=== PATIENT | male | born 1985 | race Caucasian/White ===

== ENCOUNTER 2017-11-20 09:14 | Inpatient (IN) | payer MEDICAID ==
[2017-11-20] MEDS ORDERED: OLANZapine DISINTEGR 5 MG TAB PO ONE (09:32)
--- NOTE | 2017-11-20 09:35 | EDPHY ---
H & P Stated Complaint: Paranoia, anxiety, nausea - Personal History Current Tetanus/Diphtheria Vaccine: No Current Tetanus Diphtheria and Acellular Pertussis (TDAP): No - Medical/Surgical History Hx Asthma: No Hx Chronic Respiratory Disease: No Hx Diabetes: No Hx Cardiac Disease: No Hx Renal Disease: No Hx Cirrhosis: No Hx Alcoholism: No Hx HIV/AIDS: No Hx Splenectomy or Spleen Trauma: No Other PMH: Bipolar, anxiety - Social History Smoking Status: Never smoked Time Seen by Provider: 11/20/17 09:20 HPI/ROS: CHIEF COMPLAINT: Increasing paranoia and anxiety HISTORY OF PRESENT ILLNESS: 32-year-old male history of bipolar disorder in the ER voluntarily via private vehicle with parents complaining of progressively increasing paranoia, anxiety, auditory and visual hallucinations over the past several days. He has been general compliant with his lithium although notes that he may have missed some doses. Denies acute alcohol or drug use. Prior history of methamphetamine abuse has been sober for quite some time now. His sleep habits have been disrupted. He denies suicidal or homicidal ideation. Denies complaints of physical pain. Denies abdominal pain. Denies self-injurious behavior. REVIEW OF SYSTEMS: A ten point review of systems was performed and is negative with the exception of the items mentioned in the HPI PAST MEDICAL & SURGICAL HISTORY: Bipolar disorder SOCIAL HISTORY:Denies acute alcohol or drug use. PHYSICAL EXAM (Prior to examination, patient consented to physical exam, hands were washed and my usual and customary physical exam procedures followed) 1) GENERAL: Well-developed, well-nourished, alert and oriented. Rapid speech, flight of ideas. 2) HEAD: Normocephalic, atraumatic 3) HEENT: Pupils equal, round, reactive to light bilaterally. Sclera anicteric. 4) NECK: Full range of motion, no meningeal signs. 5) LUNGS: Clear auscultation bilaterally, no wheezes, no rhonchi, no retractions. 6) HEART: Regular rate and rhythm, no murmur, no heave, no gallop. 7) ABDOMEN: No guarding, no rebound, no focal tenderness, negative McBurney's, negative Winston's, negative Rovsing's, negative peritoneal sign, 8) MUSCULOSKELETAL: Moving all extremities, no focal areas of tenderness, no obvious trauma. No peripheral edema or discoloration. 9) BACK: No CVA tenderness, no midline vertebral tenderness, no fluctuance, no step-off, no obvious trauma, no visual or palpable abnormality. 10) SKIN: No rash, no petechiae. 11) Psychiatric: Patient is oriented X 3, there is no agitation. The able answer questions appropriately although he is noted to have rapid speech and flight of ideas. DIFFERENTIAL DIAGNOSIS: In no particular include but limited to mei, psychosis, depression (Susan Stauffer Edwige) Constitutional: Initial Vital Signs Temperature (C) 37 C 11/20/17 09:16 Respiratory Rate 18 11/20/17 09:16 Blood Pressure 122/82 H 11/20/17 09:16 O2 Sat (%) 96 11/20/17 09:16 O2 Delivery Mode Room Air Allergies/Adverse Reactions: No Known Allergies Allergy (Unverified 11/20/17 09:15) Home Medications: Medication Instructions Recorded [place] Aspartate 11/20/17 Saphris 11/20/17 VYVANSE 11/20/17 Medical Decision Making ED Course/Re-evaluation: 9:32 a.m.: This patient does not meet criteria for an M1 hold at this time. He is in the ER voluntarily. He is concerned he will become progressively more manic and psychotic. He denies suicidal or homicidal ideation. In the ER with his parents. Will obtain laboratory studies including lithium level and consult with mental health horologist. 11:23 a.m.: patient's amphetamine screen is positive. On re-evaluation he states that he has recently used methamphetamine. Mental health horologist has recommended that he be placed on M1 hold for being gravely disabled and be re- evaluated in 12 hr. He is placed on M1. 5:00 p.m.: Care turned over to Dr. Memo Madden. Patient will be evaluated by mental health horologist at 11:30 p.m.. He remains calm cooperative in the ER. ( Susan Stauffer Edwige) 1243: Patient has been seen evaluated by mental health. They plan for ATU placement. 0700AM: No acute events overnight patient has been sleeping. Patient signed over to Dr. Soto at 7am. 11/21/17 (Nathan Swift) 1500: The patient is signed out to me at change of shift by Dr. Soto. 15 15: Patient became more agitated. Because of this he was given Ativan 1 mg IV. Patient received placement at [facility] psychiatric unit. EMTALA completed. (Promise Valdez) Other Provider: I assumed care of patient at 0700 AM. Patient was re-evaluated by [facility]. He continues to be decline for ATU placement. They will attempt possible placement on the inpatient unit. The patient will be turned over to Dr. Valdez at shift change pending psychiatric evaluation and disposition. (Brandon Soto) - Data Points Laboratory Results: Laboratory Results 11/20/17 09:40 11/20/17 09:40 Medications Given: Discontinued Medications Lorazepam (Ativan) 1 mg PO EDNOW ONE Stop: 11/20/17 11:56 Last Admin: 11/20/17 11:57 Dose: 1 mg Lorazepam (Ativan) 1 mg PO EDNOW ONE Stop: 11/21/17 03:14 Last Admin: 11/21/17 03:15 Dose: 1 mg Lorazepam (Ativan) 1 mg PO EDNOW ONE Stop: 11/21/17 09:42 Last Admin: 11/21/17 09:43 Dose: 1 mg Lorazepam (Ativan) 1 mg PO EDNOW ONE Stop: 11/21/17 15:23 Last Admin: 11/21/17 15:23 Dose: 1 mg Olanzapine (Zyprexa Zydis) 5 mg PO EDNOW ONE Stop: 11/20/17 09:33 Last Admin: 11/20/17 09:58 Dose: 5 mg Olanzapine (Zyprexa Zydis) 5 mg PO EDNOW ONE Stop: 11/21/17 18:02 Last Admin: 11/21/17 18:11 Dose: 5 mg Departure - Departure Disposition: [facility] IP Clinical Impression: Methamphetamine abuse, Anxiety Bipolar disorder Qualifiers: Active/Remission status: currently active Current bipolar episode type: hypomanic Qualified Code(s): F31.0 - Bipolar disorder, current episode hypomanic Condition: Good Referrals: NONE *PRIMARY CARE P,. [Primary Care Provider] - As per Instructions
[2017-11-20 10:00] LABS: PLATELET COUNT 269 10^3/uL (150-400)
[2017-11-20] MEDS ORDERED: LORazepam 1 MG TAB PO ONE (11:55)
[2017-11-21] MEDS ORDERED: LORazepam 1 MG TAB PO ONE ×3 (03:13→15:22)
[2017-11-21] MEDS ORDERED: OLANZapine DISINTEGR 5 MG TAB PO ONE (18:01)
[2017-11-21] MEDS ORDERED: MAGNESIUM HYDROXIDE 30 ML UDCUP PO PRN (23:30)
[2017-11-21] MEDS ORDERED: MAG HYDROX/AL HYDROX/SIMETH 30 ML UDCUP PO PRN (23:30)
[2017-11-21] MEDS ORDERED: OLANZapine DISINTEGR 10 MG TAB PO PRN (23:30)
[2017-11-21] MEDS ORDERED: ACETAMINOPHEN 325 MG TAB PO PRN (23:30)
[2017-11-21] MEDS ORDERED: LORazepam 0.5 MG TAB PO PRN (23:30)
[2017-11-22] MEDS ORDERED: ASENAPINE MALEATE 5 MG SUBLINGUAL TAB SL ONE (20:49)
[2017-11-22] MEDS ORDERED: LITHIUM CARBONATE ER 450 MG TAB PO ONE (20:49)
[2017-11-22] MEDS ORDERED: LITHIUM CARBONATE 300 MG TAB PO SCH (21:00)
--- NOTE | 2017-11-22 22:30 | ASMTBHDC ---
Notes Note: Notes: CC speaks to client during check-in. Client is still in bed, half awake, etc. Client denies any feelings of depression, anxiety, AVH and/or S/I-H/I. Client describes his mood as "pretty good," while presenting as not alert, semi-clean, disinterested in conversation, annoyed, bothered semi-paronoid affect (who are you, why do you want to see me, can I help). Discharge Plan would include referral to [facility] ([facility]) for out-patient follow up. Date Signed: 11/22/2017 03:04 PM Electronically Signed By:Zana Pina
--- NOTE | 2017-11-22 22:32 | BCON ---
[f rep st] BEHAVIORAL HEALTH CONSULTATION INTERNAL MEDICINE CONSULTATION DATE OF CONSULTATION: 11/22/2017 REFERRING PHYSICIAN: Buzz Gallardo MD REASON FOR REFERRAL: Medical clearance for inpatient behavioral health stay. HISTORY OF PRESENT ILLNESS: This patient is self-referred to the emergency department, complaining of hearing voices. He recently had a relapse on methamphetamine. He was evaluated by the mental health team and admitted for further psychiatric care. Currently, he is without any acute complaints. PAST MEDICAL HISTORY: 1. Bipolar disorder. 2. Asthma, which he reports he outgrew. 3. Substance abuse. MEDICATIONS: He reports he was taking trazodone, Saphris, lithium, and Vyvanse. PAST SURGICAL HISTORY: He reports that he has had an appendectomy and a hernia surgery. SOCIAL HISTORY: He lives alone. He is a nonsmoker. He has occasional alcohol use. He has had a recent relapse on methamphetamine, but otherwise was not habitually using it. He is employed. FAMILY HISTORY: Noncontributory. REVIEW OF SYSTEMS: He denies any symptoms of substance withdrawal, including no shakes or sweats. He denies recent weight change. He denies fevers or chills. He denies cough or dyspnea. He denies nausea, vomiting, constipation, or diarrhea. Otherwise, a 10-point review of systems is negative. PHYSICAL EXAM: VITAL SIGNS: Blood pressure is 129/65. Heart rate is 85. Respiratory rate is 16. Temperature is 36.9. Oxygenation is 95% on room air. GENERAL: This is a well-nourished, well-developed man, well-groomed, but with multiple tattoos, napping, dressed in street clothes and easily awakened. HEENT : Extraocular movements are intact. Pupils are equal, round, reactive to light. Mucous membranes are moist. Dentition is in good condition. NECK: Supple. HEART: There is a regular rate and rhythm, with no murmurs, rubs, or gallops. LUNGS: Clear to auscultation bilaterally. ABDOMEN: Benign. EXTREMITIES: There is no cyanosis, clubbing, or edema. NEUROLOGIC: He is alert and oriented x3. Cranial nerves 2-12 are grossly intact. There is no focal weakness. Sensation is intact to light touch, and there is no tremor. LABORATORY STUDIES: I do not have access to the electronic medical record at present. Note from the emergency department describes labs as unremarkable, with no abnormal lab values. Urine drug screen was positive for THC and methamphetamine. ASSESSMENT/RECOMMENDATIONS: 1. Psychiatric issues, pending further evaluation and treatment per Psychiatry and the mental health team. 2. Methamphetamine abuse. He reports that he took the drug intranasally and not by injection. He might benefit from specific substance abuse counseling. I see no medical contraindications to this patient's continued stay on the inpatient behavioral health unit or to any psychiatric medications or procedures. Thank you very much for including me in the care of this patient, and please do not hesitate to contact me or the hospitalist service should there be a need for further medical evaluation. /[id number]/MODL MTDD
[2017-11-23] MEDS: ASENAPINE MALEATE 5 MG SUBLINGUAL TAB SL SCH ×2 (08:05→08:53)
[2017-11-23 11:18] VITALS: BP 119/73
--- NOTE | 2017-11-23 15:36 | ASMTBHDC ---
Notes Note: Notes: Follow Up: [address] [place], [address] O# [phone] Walk-In Time & Dates: Tuesday-Tuesday from 8:30-11:30 & 12:30-14:30 (excluding afternoons) Please follow up on the @ 08:30 at the above location. Date Signed: 11/23/2017 03:28 PM Electronically Signed By:Yumiko Mckay
--- NOTE | 2017-11-23 15:36 | ASDISCHSUM ---
Discharge Information Plan Status:Psych Placement/Petitioned Medically Cleared to Leave: Discharge Date: CM D/C Disposition:OP ADT D/C Disposition: Projected Discharge Date: Transportation at D/C:None or Unknown Discharge Delay Reason: Follow-Up Date: Discharge Slot: Final Diagnosis:Bipolar I Disorder, severe 296.43 (f31.13) Placement Information Patient Contact Information Contact Name:ALISA Relationship: Address: Home Phone: Work Phone: City: Alternate Phone: State/Soundwave Code: Email: Financial Information Financial Class:HMO and PPO Plans Primary Plan Desc:[facility] Primary Plan Number:[id number] Secondary Plan Desc: Secondary Plan Number: Assessment Information Behavioral Health Discharge Planning Note Notes Note: Notes: CC speaks to client during check-in. Client is still in bed, half awake, etc. Client denies any feelings of depression, anxiety, AVH and/or S/I-H/I. Client describes his mood as "pretty good," while presenting as not alert, semi-clean, disinterested in conversation, annoyed, bothered semi-paronoid affect (who are you, why do you want to see me, can I help). Discharge Plan would include referral to [facility] ([facility]) for out-patient follow up. Date Signed: 11/22/2017 03:04 PM Electronically Signed By:Zana Pina Behavioral Health Discharge Planning Note Notes Note: Notes: Follow Up: [address] [place], [address] O# [phone] Walk-In Time & Dates: Tuesday-Tuesday from 8:30-11:30 & 12:30-14:30 (excluding afternoons) Please follow up on @ 08:30 at the above location. Date Signed: 11/23/2017 03:28 PM Electronically Signed By:Yumiko Mckay Intervention Information
--- NOTE | 2017-11-23 16:17 | BAPA ---
[f rep st] ADMISSION PSYCHIATRIC ASSESSMENT DATE OF SERVICE: 11/22/2017 Please note, the patient was evaluated on 11/22/2017, at 11:00 a.m. I was unable to enter my admissi on note due to computer downtime and am entering it as a late entry at this time. CHIEF COMPLAINT: "I'm really not doing well. The voices are killing me." HISTORY OF PRESENT ILLNESS: Patient is a 32-year-old male with a history of mental illness , though he states he is unaware of exactly what diagnosis. He states that he has chronic auditory h allucinations and paranoia that are worsened by use of marijuana and methamphetamine. He reports muna t he had been abstinent from methamphetamine, though using marijuana on a daily basis for the last se veral months. He relapsed about 4 days prior to admission using methamphetamine on one occasion. He states, "I was just bored and wanted to get high." Patient states that he snorted some methamphetam ine and then his voices intensified. He states that they are usually there all the time but typicall y in the background. After using the methamphetamine, he states that they were intrusive, loud, and threatening. He then began to see shapeless figures that he interpreted as the embodiments of these voices. This bothered him, and so he called his parents who brought him to the emergency department for evaluation. In the emergency department, he was noted to be acutely psychotic with auditory and visual hallucinat ions, paranoia, and disorganized thinking. We admitted him to the [facility] inpatient unit for further evaluation and stabilization despite Medicaid refusing to authorize the admission f or reasons that are unclear except for the relationship to the substance use. When I saw the patient on the morning of 11/22, he was tired, lying in bed, stating that he was still having a high level of hallucinatory activity. He had taken Zyprexa which he felt was very helpful but wanted to be back on his Saphris. We restarted the Saphris at his previous outpatient dose of 5 mg twice daily and his lithium at his previous dose of 900 mg at bedtime. Patient stated that he wan marlene to become stable, that he is working a full-time job, and that he was living by himself but was r eally hopeful that he could have "a normal life." He recognized the negative influence of the metham phetamine, especially on his psychotic symptoms, and stated that he had a desire to get hooked up wit h local mental health services and discontinue the methamphetamine use. PAST PSYCHIATRIC HISTORY: Significant for previous treatment for at least the last 5 years for long ar recurrent psychotic symptoms. He was previously managed through [facility] in [facility] and has recently moved to [place] but has not transferred his care. He states that pr evious treatments with Abilify, Geodon, Seroquel and possibly others have caused him to have severe a kathisia. He believed that the Saphris was the best in not causing that problem. ALLERGIES: No known medical allergies. PAST MEDICAL HISTORY: Significant for possible learning disability, possibly dyslexia. SOCIAL HISTORY: Patient is single, lives alone in [place]. 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 His parents live in [facility] and are his primary supports. He has 2 siblings, a brother and a sister. He states his brother lives in [place]. He denies any legal problems. He has few local contacts or friends. He denies any legal problems or other stressors at this time. FAMILY HISTORY: Patient's maternal grandmother reportedly had some form of mental illness. ADMISSION LABORATORY: CBC is normal. Serum chemistries are normal with the exception of a nonfastin g glucose up at 120. Urine drug screen is positive for amphetamines and marijuana, and lithium level was 0.6. MENTAL STATUS EXAMINATION: A healthy-appearing, though somewhat disheveled, male. He is l yadiel in hospital bed but makes good eye contact and is able to maintain an appropriate conversation. He is clearly distracted by his internal processes, specifically what he describes as "8 or 9 really loud voices." His affect is constricted, anxious, stable, and appropriate. His mood is described a s "bad." Thought process is linear and goal directed, though he does seem to either block or become preoccupied with his internal processes at times. He is alert and oriented to person, place, time, a nd situation, and his sensorium is clear. There is no evidence of intoxication or delirium. Patient denies any thoughts of suicide, homicide, or violence. His intellect appears to be at least average as evidenced by his educational and occupational histories, fund of knowledge, and vocabulary. His insight and judgment appear to be fair. IMPRESSION: 1. Schizoaffective disorder, bipolar type, chronic with acute exacerbation. 2. Methamphetamine use disorder, severity unknown. 3. Cannabis use disorder, severe. 4. Marginal local supports. 5. Lack of current mental health services. 6. Chronic illness. 7. Recurrent illness. The patient is a pleasant 32-year-old male with what appears to be a schizoaffective disord er. He states he was managed very well on the combination of Saphris and lithium and would like to c ontinue these. His lithium level was in the therapeutic range, and I believe it was simply the use o f the methamphetamine that caused his destabilization. We will restart the Saphris and provide suppo rtive care until his symptoms have abated to the degree that he can function normally. Estimated length of stay is 3-5 days. /[id number]/MODL
--- NOTE | 2017-11-23 16:17 | BDS ---
[f rep st] BEHAVIORAL HEALTH DISCHARGE SUMMARY REASON FOR ADMISSION: Patient is a 32-year-old male with a history of schizoaffective diso rder. He was admitted of his own accord after calling his parents, telling them that he was having a n increase in psychotic symptoms in the setting of methamphetamine use. His parents came from [facility], took him to the emergency department, where he was placed on an M1 hold and admitted due to the acute psychosis. A full description of the events preceding admission can be found in his adm ission history. Admission physical examination performed by Dr. Naldo Sapp revealed no acute physical findings. ADMISSION LABORATORY: CBC was normal. Serum chemistries were normal. Urine drug screen is positive for amphetamines, marijuana, and lithium level was 0.6. HOSPITAL COURSE: Patient was admitted to the behavioral health services inpatient unit on an M1 hold . He was acutely psychotic with intrusive, loud and command type auditory hallucinations. He stated he had been taking his outpatient medications, but the methamphetamine seems to have overpowered thi s. He was wanting to re-stabilize on his previous outpatient medicines of Saphris and lithium. Ther e was some report that he was taking Vyvanse and clonazepam, though he denied this. We restarted the Saphris and lithium, and the patient improved rapidly. He was also given several doses of p.r.n. Zy prexa, which he stated were very helpful. The patient's hospital course was uncomplicated. On the , he requested discharge from the hospit al at the expiration of his M1 hold. He agreed to stay for several hours while we attempted to make outpatient arrangements for him. Unfortunately, the status of Medicaid in regard to [facility] being able [facility] his access Medicaid caused a significant delay. The patient stated he wa s unwilling to wait for the appointment times to be made, but was willing to do a walk-in appointment at [facility] on 11/24/2017 at 8:30. He was then given 30-day prescriptions of his medi cations and instructed to present to the [facility] on 11/24/2017 at 0830. He reported sparkle r resolution of his auditory hallucinations to the background baseline. He did state, however, that he would prefer to take the Zyprexa after discharge than the Saphris as he believes this is more calm ing for him. CONDITION ON DISCHARGE: Stable. His psychosis had remitted to baseline. He was having no thoughts of suicide, homicide, or violence and was able to function normally. DISCHARGE MEDICATIONS: Zyprexa 10 mg p.o. q.h.s., lithium 900 mg p.o. q.h.s. DISPOSITION: The patient left the hospital of his own accord to return to his home in [place]. FOLLOWUP: Followup is with the [facility] at 8:30 on 11/24/2017. The patient is given leighann berger notification of the dates and times of this appointment. He states he is familiar with the loca tion of the [facility]. LEGAL COURSE: The patient was discharged at the expiration of his M1 hold. The patient's attitude was positive at the time of discharge. The patient did not have advance direct jmaes on file, though was full code throughout his stay. There were no pending labs or studies at the time of discharge. /[id number]/MODL
== END 2017-11-23 14:40 | disposition home or self-care (01) | DRG 885 ==
LOC: BBEH 11-21 21:25
PROVIDERS: ADMIT Psychiatry & Neurology Psychiatry; ATTEND Psychiatry & Neurology Psychiatry
DX: F25.0 Schizoaffective disorder, bipolar type (principal); R44.0 Auditory hallucinations; F15.10 Other stimulant abuse, uncomplicated; F12.20 Cannabis dependence, uncomplicated
CPT/HCPCS: 80305; G0480

== ENCOUNTER 2017-12-06 12:19 | Inpatient (IN) | payer BC, MEDICAID ==
--- NOTE | 2017-12-06 12:50 | EDPHY ---
H & P Stated Complaint: Insomnia/hallucinations Source: Patient, Family (Mother), Old records Exam Limitations: Clinical condition - Personal History Current Tetanus/Diphtheria Vaccine: Yes - Medical/Surgical History Hx Asthma: No Hx Chronic Respiratory Disease: No Hx Diabetes: No Hx Cardiac Disease: No Hx Renal Disease: No Hx Cirrhosis: No Hx Alcoholism: No Hx HIV/AIDS: No Hx Splenectomy or Spleen Trauma: No Other PMH: Bipolar, anxiety - Social History Smoking Status: Never smoked Time Seen by Provider: 12/06/17 12:49 HPI/ROS: HPI: This is a 32-year-old male who presents with Chief Complaint: Insomnia/hallucinations Location: psych Quality: Insomnia, hallucinations, mei Duration: 2 weeks Signs and Symptoms: + auditory hallucinations, + visual hallucinations, no suicidal ideation with a plan, no homicidal ideation, no paranoia, + insomnia, + self critical, + irritability, + rapid thought process Timing: Acute on chronic Severity: Severe Context: Patient has a history of bipolar disorder, schizoaffective disorder presents accompanied by mother with 2 week history of rapidly worsening manic episodes. Patient describes that he is having auditory and visual hallucinations but denies any command auditory hallucinations. He reports that he has not slept in 8 days. He is very self critical. He is irritable with rapid thought process. Patient admits to smoking marijuana recently. States used methamphetamine 1 month ago. Mother reports that he took his Arjay and Zyprexa as directed yesterday but has not take any medications today. Modifying Factors: See above Comment: ROS: see HPI Constitutional: No fever, no chills, no weight loss Eyes: No blurred vision Respiratory: No shortness of breath, no cough Cardiovascular: No chest pain Gastrointestinal: No nausea, no vomiting, no diarrhea Genitourinary: No dysuria Extremities: No myalgias Neurologic: No weakness, no numbness Skin: No rashes Hematologic: No bruising, no bleeding MEDICAL/SURGICAL/SOCIAL HISTORY: Medical history: Bipolar disorder, anxiety Surgical history: Denies Social history: Never smoked. Strong family support from mother. Family history noncontributory. CONSTITUTIONAL: Screaming, yelling, uncooperative adult white male, pacing in room and then crying with hands overhead in bed, awake and alert, no obvious distress HEENT: Atraumatic and normocephalic, PERRL, EOMI. Nares patent; no rhinorrhea; no nasal mucosal edema. Tympanic membranes clear. Oropharynx clear, no exudate and moist pink mucosa. Airway patent. No lymphadenopathy. No meningismus. Cardiovascular: Normal S1/S2, regular rate, regular rhythm, without murmur rub or gallop. PULMONARY/CHEST: Symmetrical and nontender. Clear to auscultation bilaterally. Good air movement. No accessory muscle usage. ABDOMEN: Soft, nondistended, nontender, no rebound, no guarding, no peritoneal signs, no masses or organomegaly. No CVAT. EXTREMITIES: 2/2 pulses, strength 5/5, no deformities, no clubbing, no cyanosis or edema. NEUROLOGICAL: no focal neuro deficits. Alert to self, place, how he feels. SKIN: Warm and dry, no erythema. no rash. Good capillary refill. PSYCH: Poor eye contact, + flight of ideas,+ tangential disorganized thought process, poor insight and judgment, + auditory hallucinations, + visual hallucinations, no suicidal ideation with a plan, no homicidal ideation, no paranoia (Echo,Terra) Constitutional: Initial Vital Signs Temperature (C) 36.4 C 12/06/17 12:25 Heart Rate 96 12/06/17 12:25 Respiratory Rate 18 12/06/17 12:25 Blood Pressure 143/90 H 12/06/17 12:25 O2 Sat (%) 92 12/06/17 12:25 O2 Delivery Mode Room Air Allergies/Adverse Reactions: No Known Allergies Allergy (Verified 12/06/17 12:27) Home Medications: Medication Instructions Recorded Arjay Carbonate [Arjay 900 mg PO HS #90 tab 11/23/17 Carbonate Tab 300 mg (*)] OLANZapine DISINTEGR [ZyPREXA 10 mg PO HS #30 tab 11/23/17 ZYDIS (*)] Medical Decision Making ED Course/Re-evaluation: 1245: Placed on M1 hold due to patient being gravely disabled, hallucinations and severe mei. Given IM Haldol 5 mg IM Ativan 2 mg upon arrival. Labs and UDS ordered. 1315: Urine drug screen positive for amphetamine and marijuana. Will need to monitor the patient 12 hr, before able to provide medical clearance for mental health evaluation. Patient does take Adderall and this could make the urine drug screen positive. 1510: Reassessed patient who is calm and cooperative. Resting quietly on his side. 1700: End of shift. Signed over to Dr. Pruett pending mental health evaluation and final disposition. Will not be medically clear until tomorrow morning. This patient was seen under the supervision of my secondary supervising physician. I evaluated care for this patient independently. Discussed this patient with Dr. Hidalgo. (Jaja Dodge) Differential Diagnosis: Differential diagnosis includes but is not limited to bipolar disorder, manic episode, psychosis, intoxicated use, suicidal ideation. (Jaja Dodge) Other Provider: PHYSICIAN DOCUMENTATION: The patient was evaluated and managed by the Physician Lens Silverer and myself. I have reviewed the chart and agree with the findings and plan of care as documented. In addition, I examined the patient myself at 1218. History confirmed as increasing voices with ideas of self-harm, last used methamphetamine a month ago, is on Adderall. Physical findings as follows: calm now and not agitated. Placed on a mental health hold by myself for increasing hallucinations and disability. History of schizoaffective disorder per discharge summary dated . Signed to Flynn at 1500 with evaluation pending. I am the secondary supervising physician. (Terry Hidalgo) 2300 care assumed by me from Dr. Pruett pending mental health evaluation. 0400 patient seen by the mental health sample paster. Patient was recently admitted for bipolar disorder and schizoaffective. Patient appears manic and is on medications at this time. They felt they would be appropriate to be placed in an ATU. 0700 patient signed out to Dr. Soto pending placement. No issues during my care this patient overnight (Khris Aviles) I assumed care of the patient at 0700 pending psychiatric disposition. Updated 8:30 a.m.: The patient was accepted at [facility] an EMTALA form had been filled out by Dr. Pruett. (Brandon Soto) - Data Points Laboratory Results: Laboratory Results 12/06/17 12:40 12/06/17 12:40 Medications Given: Discontinued Medications Haloperidol Lactate (Haldol Injection) 5 mg IM EDNOW ONE Stop: 12/06/17 12:53 Last Admin: 12/06/17 13:00 Dose: 5 mg Lorazepam (Ativan Injection) 2 mg IM EDNOW ONE Stop: 12/06/17 12:53 Last Admin: 12/06/17 13:00 Dose: 2 mg Lorazepam (Ativan) 1 mg PO EDNOW ONE Stop: 12/06/17 22:21 Last Admin: 12/06/17 22:26 Dose: 1 mg Lorazepam (Ativan) 1 mg PO EDNOW ONE Stop: 12/07/17 07:58 Last Admin: 12/07/17 08:02 Dose: 1 mg Departure - Departure Disposition: Other Psych, Not [facility] Clinical Impression: Manic episode Schizoaffective disorder Qualifiers: Schizoaffective disorder type: bipolar Qualified Code(s): F25.0 - Schizoaffective disorder, bipolar type Condition: Good Instructions: Schizoaffective Disorder (ED) Referrals: NONE *PRIMARY CARE P,. [Primary Care Provider] - As per Instructions
[2017-12-06] MEDS ORDERED: HALOPERIDOL LACT 5 MG/ML INJ IM ONE (12:52)
[2017-12-06] MEDS ORDERED: LORazepam 2 MG/ML INJ IM ONE (12:52)
[2017-12-06 13:01] LABS: PLATELET COUNT 331 10^3/uL (150-400)
[2017-12-06] MEDS ORDERED: LORazepam 1 MG TAB PO ONE (22:20)
[2017-12-07] MEDS ORDERED: LORazepam 1 MG TAB ONE ×2 (07:55→11:53)
[2017-12-07] MEDS ORDERED: LORazepam 1 MG TAB PO ONE ×2 (07:57→11:59)
[2017-12-07] MEDS ORDERED: MAGNESIUM HYDROXIDE 30 ML UDCUP PO PRN (15:27)
[2017-12-07] MEDS ORDERED: ACETAMINOPHEN 325 MG TAB PO PRN (15:27)
[2017-12-07] MEDS ORDERED: NICOTINE POLACRILEX 2 MG GUM B PRN (15:27)
[2017-12-07] MEDS ORDERED: MAG HYDROX/AL HYDROX/SIMETH 30 ML UDCUP PO PRN (15:27)
[2017-12-07] MEDS ORDERED: OLANZapine DISINTEGR 5 MG TAB PO ONE (15:29)
[2017-12-07] MEDS ORDERED: OLANZapine DISINTEGR 10 MG TAB PO SCH (21:00)
[2017-12-07] MEDS: LITHIUM CARBONATE ER 300 MG TAB PO SCH (21:10)
--- NOTE | 2017-12-08 09:39 | ASMTTLCEVL ---
[facility] Evaluation - Basic Information Evaluation Start Date and 12/07/2017 01:00 PM Time Hospital Status Answers: M1 Hold 72-hr M1 Hold Start Date 12/06/2017 12:45 PM and Time Patient statement Notes: The voices are saying degrading things to me and trying to get me to kill myself. Narrative Notes: Pt is a 32 yo, single, employed male with history of schizoaffective disorder, bipolar type, who initially self-presented to [facility] ED and ED provider placed pt on M1 hold which noted: Patient has a history of schizoaffective-bipolar disorder presents with active severe manic episode accompanied by racing thoughts, insomnia for 8 days, inability to function. Earlier in November, [facility] conducted MH evaluation in lieu of his being admitted to [facility] from 11/21/17 to 11/23/17, as pt had Medicaid only insurance. Upon this presentation, [facility] again conducted the MH evaluation, only to realize after the evaluation report was completed that pt now has Out of State insurance. Per [facility] report, pt recently went on a spending spree also and that his auditory hallucinations are saying degrading things to him and are trying to get me to kill myself but that the voices do not say specifically how he should kill himself. He added that the voices dont like me taking Vyvanse so he reported he quit taking it. He does not wish to but wants the voices to stop. Pt denied having suicidal/homicidal ideation/intent/plans to harm self. He has prior history of spending excessive amounts of money on things he does not need when in a manic episode. He reported he bought a bunch of books I dont need this past weekend. Pt denied delusions or paranoia. He reported taking his medications as prescribed following his recent discharge from [facility] on 11/23/17. Diagnosis History Notes: Pt has a history of schizoaffective disorder bipolar type, methamphetamine use disorder and cannabis use disorder. Per [facility] report, pt was diagnosed with bipolar disorder in college and has been hospitalized 4 times in the last year. Pt also struggles with social anxiety. Pt has a number of bills due to online shopping while in a manic episode. During recent prior admission, [facility] reported seeing a number of packages in his apartment indicating pt may be online shopping again. [facility] reported pt has a history of self-medicating with substances when medications are not working. Prior suicide attempts Notes: pt denies any prior suicide attempt history. Prior hospitalizations Notes: Pt has had 4 prior hospitalizations. His most recent hospitalization was at [facility] from 11/21/17 to 11/23/17. His medications upon discharge on 11/23/17 were a combination of [place] and Saphris. Treatment Responses Notes: Pt started using Vyvanse which was not included as part of his discharge medications of [place] and Saphris upon his discharge from [facility] on 11/23/17. History of violence Notes: Pt denies any hi. Therapist: In [place] Psychiatrist: In [place] Medications (name, dosage, route, freq uency) Notes: Trazadone 200mg at bed ; Saphris dose unk; [place] 300mg po daily; Vyvanse 70mg po daily; Clonazepam 2mg prn. pt stated he was also being prescribed Propranolol but has not been taking it. Allergies/Reaction Notes: NKDA. Sleep Notes: Pt reported having difficulty sleeping and that he has had only 2 hours of sleep two nights ago and that is all the sleep he has obtained in the past 8 days. Appetite Notes: Pt reported that his appetite has decreased over the past 4-5 days. Pt reported that he picks at his food but has not really been eating. Medical/Surgical history Notes: Pt reported he had asthma as a child. Recent discharge summary noted possible learning disability, possibly dyslexia. Substance use history (frequency, intensity, his tory, duration) Notes: Pt reported that he had been using methamphetamine for 1 year and that he most recently used on 11/17/17. Per [facility] report, pt stated he stopped using meth about 4 months ago and relapsed the first weekend in November. Pt reported using Vyvanse (non-prescribed) as explanation for UDS result being positive for amphetamine. Pt reported using cocaine about a 6 weeks ago. Pt reported using marijuana daily. UDS result was positive also for marijuana. Pt reported he does not drink alcohol that often and reported having maybe 7 drinks in a week. BAL was zero. Family composition Notes: Pt reported his parents live in [place]. Pt reported he has a younger sister living in [place] and a younger brother in [facility]. Need for family Answers: No participation in patient's care Family psychiatric/substance abuse history Notes: Pt reported a history of depression on moc side and stated, my moms mom had some type of mental illness, and they just didnt know what. No family substance use history reported. Developmental history Notes: Pt reported having learning disabilities as a child but received therapy for them and therefore school was not that bad. Pt reported that he grew up in [place] and reported having a nice relationship with his parents. Abuse concerns Answers: None Marital status/children Notes: Pt is unmarried, no children. Living situation Notes: Pt lives alone in [place]. Sexual history/orientation Notes: Not active. Heterosexual. Peer support/family strengths Notes: Pt reported he has a good support system. Education level/history Notes: Pt has a BA in [employer]. 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 Notes: None. Legal Notes: Pt denied any history of legal problems. Church/Spiritual Notes: None that would interfere with treatment. Leisure Notes: Pt stated, its been diminishing for a few months. I have low energy, hard to think, concentrate. Somethings not right with me. Collateral Notes: Per [facility] report and prior [facility] records. [facility] Evaluation - Mental Status Exam Appearance: Answers: Appropriate Clean Eye Contact: Answers: Good/Direct Mood: Answers: Depressed Sad Affect: Answers: Anxious Constricted Sad Behavior: Answers: Cooperative Anxious Fearful Speech: Answers: Relevant Illogical Clear Coherent Thought Process: Answers: Disorganized Oriented Alert Distracted Insight: Answers: Fair Judgement: Answers: Fair Manic Signs/Symptoms Answers: Distractibility Impulsivity Mood Swings Spending Sprees Depression Answers: Difficulty Concentrating Signs/Symptoms: Diminished Interest Diminished Pleasure Psychomotor Retardation Sad Mood Hallucinations: Answers: Auditory Delusions: Answers: Being Controlled Current Stage of Change Answers: Relapse Pt reported to have Answers: Yes suicidal/self-injuring ideation/behavior? Pt reported to be making Answers: No suicidal/self-injuring threats? Pt reported to have Answers: No aggression/assault ideation/behavior? Pt reported to be making Answers: No aggression/assault threats? Pt exhibits inability to Answers: Yes care for self/grave disability? Ideation/behavior is Answers: Yes chronic? Patient has a specific Answers: No plan? Pt has access to means to Answers: No execute the plan? Ideation involves Answers: No serious/lethal intent? Ideation has Answers: Yes delusional/hallucinatory content? History of Answers: No suicidal/self-injuring ideation, behavior, or threats? History of Answers: No aggressive/assaultive ideation, behavior, or threats? History of serious Answers: No physical harm to self/others while in treatment setting? TLC Evaluation - Suicide/Homicide Risk Suicide Risk Factors: Answers: Anhedonia Bipolar Disorder Command Hallucinations Impulsivity Lack of Church Support Psychotic Disorder Schizoaffective Disorder Single Homicide/violence risk Answers: None factors: Current Suicidal Answers: Yes Ideation? Current Suicide Ideation Past 8 days Frequency: Current Suicidal Ideation Answers: Yes in the Past 48 Hours? Current Suicidal Ideation Answers: Yes in the Past Month? Current Suicidal Answers: No Ideation, Worst Ever? Suicide Internal Answers: Kvng with Stress Protective Factors: Other Notes: Denies wish to kill himself. Suicide External Answers: Positive Therapeutic Protective Factors: Relationships Social Support Ranking of patient's Answers: Moderate suicidal risk: Ranking of patient's Answers: Low homicidal risk: TLC Evaluation - Wrap-up AXIS I Diagnosis (include DSM-V and ICD-10 codes), must also be entered in G5, which is the source of truth. Notes: Schizoaffective disorder, bipolar type 295.70 (F25.0) Amphetamine-type substance use disorder, moderate 304.40 (F15.20) Cannabis use disorder, severe 304.30 (F12.20) In consultation with [facility] ED physician, Mikey Soto MD and on-call psychiatrist, Buzz Gallardo MD, both concurred that pt appears to meet 27-65 criteria requiring psychiatric hospitalization as pt appears to be at risk of harm to self/gravely disabled due to a mental illness condition. Pt was given the 3[facility] prohibited belongings list while in the ED. Pt declined completion of BDI/BSS questionnaires. Evaluation End Date and 12/07/2017 02:30 PM Time (HH:FATOUMATA): Date Signed: 12/08/2017 09:38 AM Electronically Signed By:Deacon Richmond
--- NOTE | 2017-12-08 09:40 | ASMTTCLDSP ---
TLC Discharge Disposition Disposition: Answers: Admit Disposition Notes: Notes: Admit [facility]. Discharge Concerns/Recommendations: Notes: In consultation with [facility] ED physician, Mikey Soto MD and on-call psychiatrist, Buzz Gallardo MD, both concurred that pt appears to meet 27-65 criteria requiring psychiatric hospitalization as pt appears to be at risk of harm to self/gravely disabled due to a mental illness condition. Pt was given the 3N prohibited belongings list while in the ED. Was patient given the Answers: Not applicable Inpatient Behavioral Health Prohibited Belongings List while in the ED? For inpatient Buzz Gallardo MD admission, the following psychiatrist agreed to accept patient for admission to Behavioral Health ([facility]): Type of Hold: Answers: M1/72-hour Hold Hold initiated by: Answers: ED Physician Date Signed: 12/08/2017 09:39 AM Electronically Signed By:Deacon Richmond
--- NOTE | 2017-12-08 12:18 | BAPA ---
[f rep st] ADMISSION PSYCHIATRIC ASSESSMENT DATE OF SERVICE: 12/08/2017 REASON FOR ADMISSION: Patient is a 32-year-old male with history of schizoaffective disorder, bipolar type. He was previously hospitalized with us about 2 weeks ago, discharging on 11/23/2017. At that time he had presented with acute psychosis related to a relapse on methamphetamine and marijuana and stabilized quite rapidly on Zyprexa. He was discharged on the Zyprexa and lithium instead of the Saphris which he had taken most recently. He had transitioned from [place] to [place] and had not had a prescriber, so had been off his medications for a bit of time and stated that he felt the Zyprexa was more calming for him. Once he arrived at home, he states that this was ineffective for the hallucinations as the auditory hallucinations returned and were very intrusive and disturbing. He reported while in the hospital that they had resolved and had returned to a very mild baseline, but he states as soon as he left, they increased again and prohibited him from his normal activity. He was unable to go to work and he states that he spent most of his time lying in bed. He states "I was just like a catatonic psychotic person." He reports continuing to take the medicine, however, with no benefit. He also was unable to connect with [facility] as he presented to his walk- in clinic appointment, but they would not serve him due to his not having [facility] Medicaid. He then was unable to get other appointments elsewhere due to his debilitated condition. Today, he states that he just wants to be back on the Saphris believing that was the most helpful thing for him and wants the voices to go away. He denies any recent substance use, stating that he smoked marijuana 2 or 3 times since leaving the hospital, but has done no other drugs. PAST PSYCHIATRIC HISTORY: Significant for longstanding schizoaffective disorder. He was previously treated through [facility] in [place] and then transferred his care to [place] when he moved here for a job. He states that he has been unable to connect with [facility] as mentioned above and was supposed to begin getting insurance I believe on December 11 , but he is unsure about the status of his job due to his recent absences. He has previously taken Geodon, Seroquel, Abilify, Saphris, lithium and Zyprexa. He states that many of these caused akathisia or excessive sedation and that Saphris in his mind seems to be the best. ALLERGIES: No known medical allergies. CURRENT MEDICATIONS: [place] carbonate 900 mg p.o. at bedtime, Zyprexa 10 mg p.o. twice daily. PAST MEDICAL HISTORY: Noncontributory. SOCIAL HISTORY: Patient lives alone in an apartment in [place]. He works for a [employer]. He has had this job for several months and states that it is well paying and he enjoys it. He has not been able to attend recently due to his psychiatric issues. He has no local supports. He has a BA in [place]. His parents and his sibling live in [place] and are his primary supports, though he does not see them often. He denies any history of legal problems. SUBSTANCE ABUSE HISTORY: Patient reports having used methamphetamine off and on over time. His last use was about 3 weeks ago. He does use marijuana more frequently and states he has used 3 times over the last 2 weeks. He has used alcohol off and on, but states that he has not used this in some time. ADMISSION LABORATORY: CBC is normal. Serum chemistries are normal. Hemoglobin A1c is 5. Liver function is normal. Triglycerides are listed as elevated at 164. Cholesterol is 200. TSH is low at 0.259. Free T4 and free T3 are in the normal range at 1.01 and 4.40 respectively. A urine drug screen is positive for amphetamines and marijuana. MENTAL STATUS EXAMINATION: Reveals a somewhat disheveled though adequately groomed male lying in his hospital bed. He is easily awakened and interacts appropriately. He does appear anxious and describes his mood as "anxious." His affect is otherwise constricted and stable. His thought process is linear and goal directed. His thought content reveals ongoing intrusive, loud voices of multiple people who he states are critical and negative. He denies any specific delusions or ideas of reference. He is alert and oriented to person, place, time, and situation, and his sensorium is clear. His intellect appears to be at least average as evidenced by his educational and occupational history, his fund of knowledge, and vocabulary. He denies any thoughts of suicide, homicide, or violence. His insight and judgment appear to be fair. IMPRESSION: 1. Schizoaffective disorder, bipolar type, chronic with acute exacerbation. 2. Chronic illness. 3. Recurrent illness. 4. Lack of supports. 5. Occupational problems. 6. Cannabis use disorder, moderate to severe. 7. Amphetamine use disorder, severity unknown. The patient is a pleasant 32-year-old male with history of schizoaffective disorder. He presents at this time with a kind of ongoing relapse of his paranoid psychosis and auditory hallucinations. He states that this improved significantly when he was in the hospital, but then returned almost immediately when he went home. He has been unable to function at home lying in bed and states he presented back to the hospital of his own accord to seek further treatment. It is unclear how much influence the amphetamines have on his current status given that they are present on his drug screen, though this could be from Vyvanse that he admits to taking at times at home that was previously prescribed for him. He denies using methamphetamine since his last discharge. PLAN: 1. Admit to behavioral health services inpatient unit on an M1 hold. 2. Monitor for any behavioral disturbances or influence of the auditory hallucinations on his behaviors. He has so far been calm and cooperative. 3. Reinstitute therapy with Saphris at patient's request and I will attempt to obtain his most recent dose or start at his standard dose. The risks, benefits , and alternatives of this were reviewed with him and he agrees to proceed. We will also hold Zyprexa for now. If he continues to have intrusive symptoms, may use the combination of Zyprexa and Saphris on a p.r.n. basis only during his acute stabilization. 4. We will continue lorazepam 0.5-1 mg every 4 hours as needed for anxiety as patient appears quite anxious. 5. We will continue with discharge planning after we first resolve the question of what type of coverage he has. He could still have Medicaid out of [facility] or it could be his private insurance through his work or he could have none. 6. Estimated length of stay is 5-7 days. 7. /[id number]/MODL MTDD
[2017-12-08] MEDS: ASENAPINE MALEATE 5 MG SUBLINGUAL TAB SL SCH ×2 (12:32→17:59)
[2017-12-08] MEDS: LORazepam 1 MG TAB PO PRN ×2 (14:56→18:59)
[2017-12-08] MEDS: LITHIUM CARBONATE ER 300 MG TAB PO SCH (17:59)
[2017-12-09 06:44] VITALS: BP 119/70
[2017-12-09] MEDS: ASENAPINE MALEATE 5 MG SUBLINGUAL TAB SL SCH (08:26)
[2017-12-09] MEDS: LORazepam 1 MG TAB PO PRN ×2 (08:26→13:07)
--- NOTE | 2017-12-09 13:54 | ASMTBHDC ---
Notes Note: Notes: CC was able to confirm client's follow up appts: Listed below, client set to discharge later today. Follow up with: [facility] [address] [place] [address], [place] [address] Intake Appt: December 15 (12/15/17) at 8:45am with Khari This will allow you to have both a prescriber & therapist PLEASE follow up with this appt on 12/15/17 Additional Resources: [facility] [address] [place] [id number] HOURS OF OPERATION Week DayClinic OpensClosed for LunchClinica Closes [id number] WALK IN HOURS Date Signed: 12/09/2017 01:54 PM Electronically Signed By:Zana Pina
--- NOTE | 2017-12-09 13:55 | ASMTBHMTP ---
Master Treatment Plan Master Treatment Plan Answers: Mood Instability with for: Psychosis Date: 12/08/2017 Diagnosis on Admission: Schizoaffective Disorder Expected length of stay: 3-5 days Reason for admission: Notes: Case Manger currently does not have any report(s) or evaluations available from [facility] or [facility]. Patient's stated presenting problems: Notes: "[I] had a mental break down." Patient's goals for treatment: Notes: "[To] get better, stop having or hearing these voices (auditory hallucinations)." Patient's strengths: Notes: Not really any Identify supports outside of hospital: Notes: Not really any Discharge criteria: Notes: Patient will demonstrate more stable mood by discharge. Initial disposition plan/considerations: Notes: "I would like to return to my apartment in [place];" client notes, not having any current treatment team/ out-patient team. Master Treatment Plan Required Signatures Psychiatrist signature: Answers: Buzz Gallardo MD: RN on-shift signature: Answers: RN: Patient signature: Answers: Patient: Date Signed: 12/09/2017 01:54 PM Electronically Signed By:Zana Pina
--- NOTE | 2017-12-09 17:12 | BDS ---
[f rep st] BEHAVIORAL HEALTH DISCHARGE SUMMARY REASON FOR ADMISSION: Patient is a 32-year-old male with a history of schizoaffective diso rder, bipolar type. He presented to the hospital stating that he was being tormented by intrusive, l oud auditory hallucinations and that he was unable to function. He had previously been in our facili ty, discharging on 11/23/2017 under the same circumstances. At that time, he had used methamphetamin e and marijuana and stated that he believed this was the trigger to his symptoms. He stabilized rapi dly and was discharged but refused to wait another day in order for us to obtain specific outpatient appointment times for him. [facility] was going through some transition and were unable to schedule anything on the day his M1 hold , and he was unwilling to wait an additional day. He, therefore, was discharged but given the instructions to present to the walk-in clinic the next m orning. He did this and apparently was told that he was ineligible for services because he had the [place] type of Medicaid. He states then that he continued to take his medications as prescribed by us in the hospital, but took the Zyprexa and Saphris, which he had taken in the past. He then stopped t he Zyprexa and continued on the lithium and Saphris alone. He states that his voices were increasing throughout the 2 weeks until he finally presented here in order to seek help for that. A full descr iption of the events preceding admission can be found in his admission history dated 12/08/2017. ADMISSION DIAGNOSES: Schizoaffective disorder, bipolar type, chronic with acute exacerbation; chroni c illness; recurrent illness; lack of supports; occupational problems; cannabis use disorder, moderat e to severe; and amphetamine use disorder, severity unknown. ADMITTING PHYSICAL EXAMINATION: Not performed due to the proximity to his previous admission. ADMISSION LABORATORY: CBC was normal. Liver function was normal. A TSH was low at 0.259, and free T4 and T3 were normal. Dr. Sapp reviewed these labs and stated that he believed that this could wa rrant an outpatient endocrinology evaluation, though he was not concerned about it. The patient's ur ine drug screen was positive for amphetamines and marijuana. HOSPITAL COURSE: The patient was admitted to the behavior health services inpatient unit on an M1 ho ld. I interviewed him on the morning of his first day in the hospital, and he stated that the voices were unbearable and loud, and he wanted to continue the Saphris. He stated he was not interested in the Zyprexa. I reviewed with him the course of his last hospitalization when he stated he believed the Zyprexa was more calming, but he stated that he did not want to take that. He wanted to continue his lithium and Saphris. The patient was averse to getting a blood draw to check his lithium level, however. He had been stable on the same dose for some time, so we continued the lithium and the Sap hris as he was previously prescribed. On the morning of the second day of hospitalization, about 2 hours prior to the expiration of his M1 hold, the patient stated that he wanted to leave the hospital. He went into a tirade about how psych iatric hospitals do not help him and make him worse and how we were not providing the individual ther apy he felt like was most crucial to his recovery. I indicated to him that I would not allow him to discharge until we had specific outpatient appointments this time, and he refused to sign in as a vol untary patient. The manager case management worked diligently to achieve an outpatient therapy appointment with [facility], and the patient stated that he had enough medications at home for at least 2 months and would seek an outpatient medication provider on his own through his [facility] insura nce. I contemplated placing him on a short-term certification, though he stated his auditory halluci nations had resolved, he was having no thoughts of suicide, and there were really no grounds for furt her fdc at that point. CONDITION ON DISCHARGE: Stable. He was describing low level baseline hallucinations that he stated are permanent, was having no thoughts of suicide, and was displaying an overall linear thought proces s. DISCHARGE MEDICATIONS: [place] 1500 mg daily and Saphris 5 mg b.i.d. I specifically did not prescri be his Vyvanse as he requested, and he stated that he had been taking that prior to admission, which he accounted for the positive amphetamine in his drug screen. He was adamant that he did not abuse d rugs and did not use methamphetamine prior to this admission. I also advised him strongly against fu rther use of either the amphetamine or marijuana as I believe these would exacerbate his psychosis. DISCHARGE DIAGNOSES: Schizoaffective disorder, chronic, with acute exacerbation; marginal supports; cannabis use disorder, moderate to severe; amphetamine use disorder, moderate to severe. DISPOSITION: Patient left the hospital of his own accord. The patient was given specific written instructions on his followup plans. The patient was discharged at the expiration of his M1 hold. Patient's attitude was negative toward hospitalization but positive toward seeking individual therapy . The patient was a full code throughout his stay. There are no pending labs or studies at the time of discharge. /[id number]/MODL
--- NOTE | 2018-01-01 11:42 | ASDISCHSUM ---
Discharge Information Plan Status:Outpatient Psych Referrals Medically Cleared to Leave:12/09/2017 Discharge Date:12/09/2017 02:44 PM CM D/C Disposition:OP ADT D/C Disposition:Home, Routine, Self-Care Projected Discharge Date:12/09/2017 02:44 PM Transportation at D/C:Self Discharge Delay Reason: Follow-Up Date:12/15/2017 Discharge Slot: Final Diagnosis:Schizophrenia Placement Information Referral Type:Outpatient Center/Clinic Referral ID:[id number] Provider Name:[facility] Address 1:[address] Phone Number: Address 2: Fax Number: [facility] Selection Factors: State:[place] Patient Contact Information Contact Name:ALISA Relationship: Address: Home Phone: Work Phone: City: [facility] Phone: [facility] Code: Email: Financial Information Financial Class:HMO and PPO Plans Primary Plan Desc: OUT OF STATE PPO Primary Plan Number:[id number] Secondary Plan Desc:[facility] Secondary Plan Number:[id number] Assessment Information TLC Progress Note Notes Note: Notes: Spoke with Miky at [facility] who confirmed pt an open client. [facility] will contact [facility] when med cleared. Date Signed: 12/06/2017 12:53 PM Electronically Signed By:Kamla Zuniga TLC Progress Note Notes Note: Notes: Called [facility] and spoke with Lena to inform that pt has med cleared. Lena stated she would send an silk top hat body maker out in 1 hour. Date Signed: 12/06/2017 02:08 PM Electronically Signed By:Kamla Zuniga [facility] Master Treatment Plan Master Treatment Plan Master Treatment Plan Answers: Mood Instability with for: Psychosis Date: 12/08/2017 Diagnosis on Admission: Schizoaffective Disorder Expected length of stay: 3-5 days Reason for admission: Notes: Case Noé currently does not have any report(s) or evaluations available from [facility] or [facility]. Patient's stated presenting problems: Notes: "[I] had a mental break down." Patient's goals for treatment: Notes: "[To] get better, stop having or hearing these voices (auditory hallucinations)." Patient's strengths: Notes: Not really any Identify supports outside of hospital: Notes: Not really any Discharge criteria: Notes: Patient will demonstrate more stable mood by discharge. Initial disposition plan/considerations: Notes: "I would like to return to my apartment in [place];" client notes, not having any current treatment team/ out-patient team. Master Treatment Plan Required Signatures Psychiatrist signature: Answers: Buzz Gallardo MD: RN on-shift signature: Answers: RN: Patient signature: Answers: Patient: Date Signed: 12/09/2017 01:54 PM Electronically Signed By:Zana Pina TLC Evaluation [facility] Evaluation - Basic Information Evaluation Start Date and 12/07/2017 01:00 PM Time Hospital Status Answers: M1 Hold 72-hr M1 Hold Start Date 12/06/2017 12:45 PM and Time Patient statement Notes: The voices are saying degrading things to me and trying to get me to kill myself. Narrative Notes: Pt is a 32 yo, single, employed male with history of schizoaffective disorder, bipolar type, who initially self-presented to [facility] ED and ED provider placed pt on M1 hold which noted: Patient has a history of schizoaffective-bipolar disorder presents with active severe manic episode accompanied by racing thoughts, insomnia for 8 days, inability to function. Earlier in November, [facility] conducted MH evaluation in lieu of his being admitted to [facility] from 11/21/17 to 11/23/17, as pt had Medicaid only insurance. Upon this presentation, [facility] again conducted the MH evaluation, only to realize after the evaluation report was completed that pt now has Out of State insurance. Per [facility] report, pt recently went on a spending spree also and that his auditory hallucinations are saying degrading things to him and are trying to get me to kill myself but that the voices do not say specifically how he should kill himself. He added that the voices dont like me taking Vyvanse so he reported he quit taking it. He does not wish to but wants the voices to stop. Pt denied having suicidal/homicidal ideation/intent/plans to harm self. He has prior history of spending excessive amounts of money on things he does not need when in a manic episode. He reported he bought a bunch of books I dont need this past weekend. Pt denied delusions or paranoia. He reported taking his medications as prescribed following his recent discharge from [facility] on 11/23/17. Diagnosis History Notes: Pt has a history of schizoaffective disorder bipolar type, methamphetamine use disorder and cannabis use disorder. Per [facility] report, pt was diagnosed with bipolar disorder in college and has been hospitalized 4 times in the last year. Pt also struggles with social anxiety. Pt has a number of bills due to online shopping while in a manic episode. During recent prior admission, [facility] reported seeing a number of packages in his apartment indicating pt may be online shopping again. [facility] reported pt has a history of self-medicating with substances when medications are not working. Prior suicide attempts Notes: pt denies any prior suicide attempt history. Prior hospitalizations Notes: Pt has had 4 prior hospitalizations. His most recent hospitalization was at [facility] from 11/21/17 to 11/23/17. His medications upon discharge on 11/23/17 were a combination of Livermore and Saphris. Treatment Responses Notes: Pt started using Vyvanse which was not included as part of his discharge medications of Livermore and Saphris upon his discharge from [facility] on 11/23/17. History of violence Notes: Pt denies any hi. Therapist: In [place] Psychiatrist: In [place] Medications (name, dosage, route, freq uency) Notes: Trazadone 200mg at bed ; Saphris dose unk; Livermore 300mg po daily; Vyvanse 70mg po daily; Clonazepam 2mg prn. pt stated he was also being prescribed Propranolol but has not been taking it. Allergies/Reaction Notes: NKDA. Sleep Notes: Pt reported having difficulty sleeping and that he has had only 2 hours of sleep two nights ago and that is all the sleep he has obtained in the past 8 days. Appetite Notes: Pt reported that his appetite has decreased over the past 4-5 days. Pt reported that he picks at his food but has not really been eating. Medical/Surgical history Notes: Pt reported he had asthma as a child. Recent discharge summary noted possible learning disability, possibly dyslexia. Substance use history (frequency, intensity, his tory, duration) Notes: Pt reported that he had been using methamphetamine for 1 year and that he most recently used on 11/17/17. Per [facility] report, pt stated he stopped using meth about 4 months ago and relapsed the first weekend in November. Pt reported using Vyvanse (non-prescribed) as explanation for UDS result being positive for amphetamine. Pt reported using cocaine about a 6 weeks ago. Pt reported using marijuana daily. UDS result was positive also for marijuana. Pt reported he does not drink alcohol that often and reported having maybe 7 drinks in a week. BAL was zero. Family composition Notes: Pt reported his parents live in [place]. Pt reported he has a younger sister living in [place] and a younger brother in [facility]. Need for family Answers: No participation in patient's care Family psychiatric/substance abuse history Notes: Pt reported a history of depression on moc side and stated, my moms mom had some type of mental illness, and they just didnt know what. No family substance use history reported. Developmental history Notes: Pt reported having learning disabilities as a child but received therapy for them and therefore school was not that bad. Pt reported that he grew up in [place] and reported having a nice relationship with his parents. Abuse concerns Answers: None Marital status/children Notes: Pt is unmarried, no children. Living situation Notes: Pt lives alone in [place]. Sexual history/orientation Notes: Not active. Heterosexual. Peer support/family strengths Notes: Pt reported he has a good support system. Education level/history Notes: Pt has a BA in [employer] arts. 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 Notes: None. Legal Notes: Pt denied any history of legal problems. Mosque/Spiritual Notes: None that would interfere with treatment. Leisure Notes: Pt stated, its been diminishing for a few months. I have low energy, hard to think, concentrate. Somethings not right with me. Collateral Notes: Per [facility] report and prior [facility] records. TLC Evaluation - Mental Status Exam Appearance: Answers: Appropriate Clean Eye Contact: Answers: Good/Direct Mood: Answers: Depressed Sad Affect: Answers: Anxious Constricted Sad Behavior: Answers: Cooperative Anxious Fearful Speech: Answers: Relevant Illogical Clear Coherent Thought Process: Answers: Disorganized Oriented Alert Distracted Insight: Answers: Fair Judgement: Answers: Fair Manic Signs/Symptoms Answers: Distractibility Impulsivity Mood Swings Spending Sprees Depression Answers: Difficulty Concentrating Signs/Symptoms: Diminished Interest Diminished Pleasure Psychomotor Retardation Sad Mood Hallucinations: Answers: Auditory Delusions: Answers: Being Controlled Current Stage of Change Answers: Relapse Pt reported to have Answers: Yes suicidal/self-injuring ideation/behavior? Pt reported to be making Answers: No suicidal/self-injuring threats? Pt reported to have Answers: No aggression/assault ideation/behavior? Pt reported to be making Answers: No aggression/assault threats? Pt exhibits inability to Answers: Yes care for self/grave disability? Ideation/behavior is Answers: Yes chronic? Patient has a specific Answers: No plan? Pt has access to means to Answers: No execute the plan? Ideation involves Answers: No serious/lethal intent? Ideation has Answers: Yes delusional/hallucinatory content? History of Answers: No suicidal/self-injuring ideation, behavior, or threats? History of Answers: No aggressive/assaultive ideation, behavior, or threats? History of serious Answers: No physical harm to self/others while in treatment setting? TLC Evaluation - Suicide/Homicide Risk Suicide Risk Factors: Answers: Anhedonia Bipolar Disorder Command Hallucinations Impulsivity Lack of Mosque Support Psychotic Disorder Schizoaffective Disorder Single Homicide/violence risk Answers: None factors: Current Suicidal Answers: Yes Ideation? Current Suicide Ideation Past 8 days Frequency: Current Suicidal Ideation Answers: Yes in the Past 48 Hours? Current Suicidal Ideation Answers: Yes in the Past Month? Current Suicidal Answers: No Ideation, Worst Ever? Suicide Internal Answers: Kvng with Stress Protective Factors: Other Notes: Denies wish to kill himself. Suicide External Answers: Positive Therapeutic Protective Factors: Relationships Social Support Ranking of patient's Answers: Moderate suicidal risk: Ranking of patient's Answers: Low homicidal risk: TLC Evaluation - Wrap-up AXIS I Diagnosis (include DSM-V and ICD-10 codes), must also be entered in [employer], which is the source of truth. Notes: Schizoaffective disorder, bipolar type 295.70 (F25.0) Amphetamine-type substance use disorder, moderate 304.40 (F15.20) Cannabis use disorder, severe 304.30 (F12.20) In consultation with [facility] ED physician, Mikey Soto MD and on-call psychiatrist, Buzz Gallardo MD, both concurred that pt appears to meet 27-65 criteria requiring psychiatric hospitalization as pt appears to be at risk of harm to self/gravely disabled due to a mental illness condition. Pt was given the 3N prohibited belongings list while in the ED. Pt declined completion of BDI/BSS questionnaires. Evaluation End Date and 12/07/2017 02:30 PM Time (HH:FATOUMATA): Date Signed: 12/08/2017 09:38 AM Electronically Signed By:Deacon Richmond TLC Discharge Disposition TLC Discharge Disposition Disposition: Answers: Admit Disposition Notes: Notes: Admit [facility]. Discharge Concerns/Recommendations: Notes: In consultation with [facility] ED physician, Mikey Soto MD and on-call psychiatrist, Buzz Gallardo MD, both concurred that pt appears to meet 27-65 criteria requiring psychiatric hospitalization as pt appears to be at risk of harm to self/gravely disabled due to a mental illness condition. Pt was given the 3N prohibited belongings list while in the ED. Was patient given the Answers: Not applicable Inpatient Behavioral Health Prohibited Belongings List while in the ED? For inpatient Buzz Gallardo MD admission, the following psychiatrist agreed to accept patient for admission to Behavioral Health ([facility]): Type of Hold: Answers: M1/72-hour Hold Hold initiated by: Answers: ED Physician Date Signed: 12/08/2017 09:39 AM Electronically Signed By:Deacon Richmond [facility] Discharge Planning Note Notes Note: Notes: CC was able to confirm client's follow up appts: Listed below, client set to discharge later today. Follow up with: [facility] [address] [place] [address], [place] [address] Intake Appt: December 15 (12/15/17) at 8:45am with Khari This will allow you to have both a prescriber & therapist PLEASE follow up with this appt on 12/15/17 Additional Resources: [facility] [address] [place] [id number] HOURS OF OPERATION Week DayClinic OpensClosed for LunchClinica Closes [id number] WALK IN HOURS Date Signed: 12/09/2017 01:54 PM Electronically Signed By:Zana Pina Intervention Information
== END 2017-12-09 14:44 | disposition home or self-care (01) | DRG 885 ==
LOC: BBEH 12-07 15:07
PROVIDERS: ADMIT Psychiatry & Neurology Psychiatry; ATTEND Psychiatry & Neurology Psychiatry
DX: F25.0 Schizoaffective disorder, bipolar type (principal); F15.10 Other stimulant abuse, uncomplicated; F12.20 Cannabis dependence, uncomplicated
CPT/HCPCS: 80305; 84481-90; G0480; J1630; J2060